=== PATIENT | male | born 1995 | race Caucasian/White ===

== ENCOUNTER 2016-10-08 21:10 | Emergency (ER) | payer OTHER ==
--- NOTE | 2016-10-08 21:18 | ER Document Report ---
ED Medical Screen (RME) - General Chief Complaint: Groin Pain Stated Complaint: GROIN PAIN Mode of Arrival: Ambulatory Information source: Patient Notes: 21 y/o M presents to ED c/o intermittenly persistent dysuria and associated penile discharge and frequency over the last week. Denies testicular/groin pain or swelling. I have greeted and performed a rapid initial assessment of this patient. A comprehensive ED assessment and evaluation of the patient, analysis of test results and completion of the medical decision making process will be conducted by additional ED providers. Physical Exam - General General appearance: Appears well, Alert In distress: None
[2016-10-08 22:46] LABS: APPEARANCE,URINE CLEAR; BILIRUBIN,URINE NEGATIVE (NEGATIVE); GLUCOSE, URINE NEGATIVE (NEGATIVE); KETONES,URINE NEGATIVE (NEGATIVE); LEUKOCYTE ESTERASE,URINE TRACE (NEGATIVE); NITRITE,URINE NEGATIVE (NEGATIVE); PROTEIN,URINE NEGATIVE (NEGATIVE); UROBILINOGEN,URINE NEGATIVE mg/dL (<2.0)
[2016-10-08] MEDS ORDERED: AZITHROMYCIN 250 MG TABLET PO ONE (23:53)
[2016-10-08] MEDS ORDERED: CEFTRIAXONE INJ 250 MG VIAL IM ONE (23:54)
--- NOTE | 2016-10-08 23:56 | ER Document Report ---
ED General - General Mode of Arrival: Ambulatory TRAVEL OUTSIDE OF THE [place] IN LAST 30 DAYS: No <JUDE HAYES - Last Filed: 10/08/16 23:54> - General Time seen by provider: 00:08 Mode of Arrival: Ambulatory Information source: Patient TRAVEL OUTSIDE OF THE [place] IN LAST 30 DAYS: No - HPI Onset: Last week Onset/Duration: Gradual Quality of pain: Burning Severity: Moderate Pain Level: 3 Associated symptoms: Other - Painful penis discharge Exacerbated by: Other - Sexual intercourse Relieved by: Denies Similar symptoms previously: No Recently seen / treated by doctor: No <CARMEL LUDWIG - Last Filed: 10/09/16 00:13> - General Chief Complaint: Penile Pain Stated Complaint: GROIN PAIN Notes: 21-year-old male presents to ED for painful discharge from penis (CARMEL LUDWIG) - Related Data Allergies/Adverse Reactions: No Known Allergies Allergy (Unverified 10/08/16 21:18) Past Medical History - General Information source: Patient - Social History Smoking Status: Never Smoker Chew tobacco use (# tins/day): No Frequency of alcohol use: Social Drug Abuse: None Patient has suicidal ideation: No Patient has homicidal ideation: No Renal/ Medical History: Denies: Hx Peritoneal Dialysis Surgical Hx: Negative <JUDE HAYES - Last Filed: 10/08/16 23:54> - Social History Smoking Status: Never Smoker Chew tobacco use (# tins/day): No Frequency of alcohol use: Social Drug Abuse: None Lives with: Other - Pharynx Family History: Reviewed & Not Pertinent Patient has suicidal ideation: No Patient has homicidal ideation: No - Past Medical History Cardiac Medical History: Reports: None Pulmonary Medical History: Reports: None EENT Medical History: Reports: None Neurological Medical History: Reports: None Endocrine Medical History: Reports: None Renal/ Medical History: Reports: None Malignancy Medical History: Reports None GI Medical History: Reports: None Musculoskeltal Medical History: Reports Hx Musculoskeletal Trauma - Rib fractures Skin Medical History: Reports None Psychiatric Medical History: Reports: None Traumatic Medical History: Reports: None Infectious Medical History: Reports: None Past Surgical History: Reports: Hx Oral Surgery - [place] teeth - Immunizations Immunizations up to date: Yes Hx Diphtheria, Pertussis, Tetanus Vaccination: Yes History of Influenza Vaccine for 06/2016 - 11/2016 Season: Yes <JOSEFLEECARMEL - Last Filed: 10/09/16 00:13> Review of Systems - Review of Systems Constitutional: No symptoms reported EENT: No symptoms reported Cardiovascular: No symptoms reported Respiratory: No symptoms reported Gastrointestinal: No symptoms reported Genitourinary: No symptoms reported Male Genitourinary: Penile discharge Musculoskeletal: No symptoms reported Skin: No symptoms reported Hematologic/Lymphatic: No symptoms reported Neurological/Psychological: No symptoms reported <CAREML LUDWIG - Last Filed: 10/09/16 00:13> Physical Exam <DARRYL HAYESIAN - Last Filed: 10/08/16 23:54> - Vital signs Interpretation: Normal - General General appearance: Appears well, Alert - HEENT Head: Normocephalic, Atraumatic Eyes: Normal Pupils: PERRL - Respiratory Respiratory status: No respiratory distress Chest status: Nontender Breath sounds: Normal Chest palpation: Normal - Cardiovascular Rhythm: Regular Heart sounds: Normal auscultation Murmur: No - Abdominal Inspection: Normal Distension: No distension Bowel sounds: Normal Tenderness: Nontender Organomegaly: No organomegaly - Genitourinary Tenderness: Nontender Cremasteric reflex: Normal Scrotum: Normal - Back Back: Normal, Nontender - Extremities General upper extremity: Normal inspection, Nontender, Normal color, Normal ROM , Normal temperature General lower extremity: Normal inspection, Nontender, Normal color, Normal ROM , Normal temperature, Normal weight bearing. No: Chelle's sign - Neurological Neuro grossly intact: Yes Cognition: Normal Orientation: AAOx4 [place] Coma Scale Eye Opening: Spontaneous [place] Coma Scale Verbal: Oriented [place] Coma Scale Motor: Obeys Commands Maryellen Coma Scale Total: 15 Speech: Normal Motor strength normal: LUE, RUE, LLE, RLE Sensory: Normal - Psychological Associated symptoms: Normal affect, Normal mood - Skin Skin Temperature: Warm Skin Moisture: Dry Skin Color: Normal <CARMEL LUDWIG - Last Filed: 10/09/16 00:13> - Vital signs Vitals: Temp Pulse Resp BP Pulse Ox 98.6 F 79 12 129/79 H 100 10/08/16 21:30 10/08/16 21:30 10/08/16 21:30 10/08/16 21:30 10/08/16 21:30 (JUDE HAYES) (CARMEL LUDWIG) - Genitourinary Notes: Penile discharge. Clear at this time (CARMEL LUDWIG) Course <JUDE HAYES - Last Filed: 10/08/16 23:54> <CARMEL LUDWIG - Last Filed: 10/09/16 00:13> - Re-evaluation Re-evalutation: 10/08/16 23:54 Patient presents with symptoms consistent with dissection transmitted infection likely either gonorrhea or chlamydia. He was empirically treated with ceftriaxone and azithromycin. Safe sex practices have been reviewed. No additional concerns. Exam is otherwise unremarkable without evidence of torsion or epididymitis.At this time will discharge with return precautions and follow-up recommendations. Verbal discharge instructions given a the bedside and opportunity for questions given. Medication warnings reviewed. Patient is in agreement with this plan and has verbalized understanding of return precautions and the need for primary care follow-up in the next 24-72 hours. ( JUDE HAYES) - Vital Signs Vital signs: Temp Pulse Resp BP Pulse Ox 98.6 F 79 12 129/79 H 100 10/08/16 21:30 10/08/16 21:30 10/08/16 21:30 10/08/16 21:30 10/08/16 21:30 (JUDE HAYES) (CARMEL LUDWIG) - Laboratory Laboratory results interpreted by me: 10/08/16 21:22 Ur Leukocyte Esterase TRACE H (JUDE HAYES) (CARMEL LUDWIG) Discharge <JUDE HAYES - Last Filed: 10/08/16 23:54> <CARMEL LUDWIG - Last Filed: 10/09/16 00:13> - Discharge Clinical Impression: Sexually transmitted disease Condition: Good Disposition: HOME, SELF-CARE Additional Instructions: You need to use protection every time you have sex. Failure to do so can result in transmission of infections or unintended . You have been treated for an sexually transmitted infection (STI) today. All of your partners should be tested and treated as they are also likely to be infected. Please return if you develop abdominal pain, fever, persistent vomiting, or any other symptoms that are concerning to you. Please follow-up at the local health department for STI testing. Address: [address] [place] [address] Hours: 8am-4pm Thurs 12p-4p Wed 8a-4p Azithromycin Azithromycin (Zithromax) is a broad spectrum antibiotic in the same class as erythromycin. It can treat a variety of bacterial infections, but is most frequently used for respiratory infections. Azithromycin is extremely long-lasting. It accumulates in body tissues and continues to kill bacteria for many days. In order to improve absorption, Azithromycin should be taken at least one hour before or two hours after a meal. It does not have the same strong tendency to upset the stomach as erythromycin and is usually very well tolerated. Patients who have had a rash or other true allergic reactions to erythromycin should not take this medication. Call if you develop gastrointestinal distress, severe diarrhea, rash, hives, itching, or shortness of breath. Rocephin You have been given an injection of an antibiotic called Rocephin ( ceftriaxone). Sometimes the injection must be combined with antibiotic pills. For some infections, such as an uncomplicated ear infection, Rocephin provides all the antibiotic that's needed. The antibiotic will be in your body for about two days. For serious infections, we usually repeat doses of Rocephin daily. Side effects are very unusual following a shot. Women may develop vaginal yeast infections, and babies can get yeast (thrush) in the mouth following the use of antibiotics. Contact your physician if you have symptoms with this medication. Allergy to this antibiotic can result in hives, wheezing, faintness, or itching. If symptoms of allergy occur, call the doctor at once. FOLLOW-UP CARE: If you have been referred to a physician for follow-up care, call the physician s office for an appointment as you were instructed or within the next two days. If you experience worsening or a significant change in your symptoms, notify the physician immediately or return to the Emergency Department at any time for re-evaluation. Forms: Elevated Blood Pressure
[2016-10-09] MEDS ORDERED: LIDOCAINE 1% INJ-PF (10 MG/ML) 30 ML SDV ONE (00:09)
[2016-10-09 00:12] LABS: CHLAM PCR DETECTED (NOT DETECT)
[2016-10-09 01:55] VITALS: BP 129/88
== END 2016-10-09 00:45 | disposition home or self-care (01) ==
LOC: ER 21:10
DX: R10.30 Lower abdominal pain, unspecified (principal); R36.9 Urethral discharge, unspecified; R35.0 Frequency of micturition; Z53.20 Procedure and treatment not carried out because of patient's decision for unspecified reasons
CPT/HCPCS: 99281; 96372; 81001; 87491; 87591; J3490; J0696

== ENCOUNTER 2016-11-09 20:40 | Emergency (ER) | payer OTHER ==
[2016-11-09 20:49] VITALS: BP 144/56
[2016-11-09] MEDS ORDERED: AZITHROMYCIN 1 GM SUSP PACKET PO ONE (21:35)
[2016-11-09] MEDS ORDERED: CEFTRIAXONE INJ 250 MG VIAL IM ONE (21:35)
[2016-11-09] MEDS ORDERED: LIDOCAINE 1% INJ-PF (10 MG/ML) 30 ML SDV INFIL ONE (21:35)
--- NOTE | 2016-11-09 21:35 | ER Document Report ---
ED Medical Screen (RME) - General Stated Complaint: GENITAL PAIN Mode of Arrival: Ambulatory Information source: Patient Notes: pt with history of gonorrhea reports having same symptoms today. Recently treated for STD's approximately 4 weeks ago here. He thinks he unprotected sex again. Reports he went out drinking ETOH. Denies f/v/d. Reports genital irritating feeling. Denies pain with void. Patient also has a bump he would like to see a male doctor for. TRAVEL OUTSIDE OF THE [place]. IN LAST 30 DAYS: No - Related Data Allergies/Adverse Reactions: shellfish derived Allergy (Verified 11/09/16 21:32) Past Medical History Renal/ Medical History: Denies: Hx Peritoneal Dialysis Physical Exam - Vital signs Vitals: Temp Pulse Resp BP Pulse Ox 98.4 F 91 18 144/56 H 99 11/09/16 20:47 11/09/16 20:47 11/09/16 20:47 11/09/16 20:47 11/09/16 20:47 Course - Vital Signs Vital signs: Temp Pulse Resp BP Pulse Ox 98.4 F 91 18 144/56 H 99 11/09/16 20:47 11/09/16 20:47 11/09/16 20:47 11/09/16 20:47 11/09/16 21:36
--- NOTE | 2016-11-09 21:37 | ER Document Report ---
HPI - HPI Pain Level: 0 Context: pt with history of gonorrhea reports having same symptoms today. Recently treated for STD's approximately 4 weeks ago here. He thinks he unprotected sex again. Reports he went out drinking ETOH. Denies f/v/d. Reports genital irritating feeling. Denies pain with void. - DERM Skin Color: Normal Past Medical History - General Information source: Patient - Social History Smoking Status: Never Smoker Chew tobacco use (# tins/day): No Frequency of alcohol use: Social Drug Abuse: None Patient has suicidal ideation: No Patient has homicidal ideation: No Renal/ Medical History: Denies: Hx Peritoneal Dialysis Vertical Provider Document - INFECTION CONTROL TRAVEL OUTSIDE OF THE [place] IN LAST 30 DAYS: No - RESPIRATORY O2 Sat by Pulse Oximetry: 99 Course - Vital Signs Vital signs: Temp Pulse Resp BP Pulse Ox 98.4 F 91 18 144/56 H 99 11/09/16 20:47 11/09/16 20:47 11/09/16 20:47 11/09/16 20:47 11/09/16 20:47
--- NOTE | 2016-11-09 22:08 | ER Document Report ---
ED General - General Chief Complaint: Penile Problem Stated Complaint: GENITAL PAIN Mode of Arrival: Ambulatory Information source: Patient Notes: 21-year-old male presents with 2 separate genital complaints. Patient has been having dysuria over the past few days. Patient was recently treated for chlamydia. Patient also notes bumps in his suprapubic region for one year duration that he wishes to have evaluated TRAVEL OUTSIDE OF THE [place] IN LAST 30 DAYS: No - HPI Onset: Other Onset/Duration: Persistent Quality of pain: Burning Severity: Mild Pain Level: 1 Associated symptoms: Other Exacerbated by: Other - Urination Relieved by: Denies Similar symptoms previously: Yes Recently seen / treated by doctor: Yes - Related Data Allergies/Adverse Reactions: shellfish derived Allergy (Verified 11/09/16 21:32) Past Medical History - General Information source: Patient - Social History Smoking Status: Never Smoker Cigarette use (# per day): No Chew tobacco use (# tins/day): No Smoking Education Provided: No Frequency of alcohol use: Social Drug Abuse: None Family History: Reviewed & Not Pertinent Patient has suicidal ideation: No Patient has homicidal ideation: No Renal/ Medical History: Denies: Hx Peritoneal Dialysis Review of Systems - Review of Systems Notes: REVIEW OF SYSTEMS: CONSTITUTIONAL : Denies fever, chills, or sweats. Denies recent illness. EENT: Denies eye, ear, throat, or mouth pain or symptoms. Denies nasal or sinus congestion or discharge. Denies throat, tongue, or mouth swelling or difficulty swallowing. CARDIOVASCULAR: Denies chest pain. Denies palpitations or racing or irregular heart beat. Denies ankle edema. RESPIRATORY: Denies cough, cold, or chest congestion. Denies shortness of breath, difficulty breathing, or wheezing. GASTROINTESTINAL: Denies abdominal pain or distention. Denies nausea, vomiting , or diarrhea. Denies blood in vomitus, stools, or per rectum. Denies black, tarry stools. Denies constipation. GENITOURINARY: Admits to burning on urination MUSCULOSKELETAL: Denies back or neck pain or stiffness. Denies joint pain or swelling. SKIN: Admits to rash suprapubic HEMATOLOGIC : Denies easy bruising or bleeding. LYMPHATIC: Denies swollen, enlarged glands. NEUROLOGICAL: Denies confusion or altered mental status. Denies passing out or loss of consciousness. Denies dizziness or lightheadedness. Denies headache. Denies weakness or paralysis or loss of use of either side. Denies problems with gait or speech. Denies sensory loss, numbness, or tingling. Denies seizures. PSYCHIATRIC: Denies anxiety or stress. Denies depression, suicidal ideation, or homicidal ideation. ALL OTHER SYSTEMS REVIEWED AND NEGATIVE. Dictation was performed using [employer] voice recognition software PHYSICAL EXAMINATION: GENERAL: Well-appearing, well-nourished and in no acute distress. HEAD: Atraumatic, normocephalic. EYES: Pupils equal round and reactive to light, extraocular movements intact, sclera anicteric, conjunctiva are normal. ENT: Nares patent, oropharynx clear without exudates. Moist mucous membranes. NECK: Normal range of motion, supple without lymphadenopathy LUNGS: Breath sounds clear to auscultation bilaterally and equal. No wheezes rales or rhonchi. HEART: Regular rate and rhythm without murmurs ABDOMEN: Soft, nontender, nondistended abdomen. No guarding, no rebound. No masses appreciated. Circumcised penis at the base of the penis there are Genital warts Musculoskeletal: Normal range of motion, no pitting or edema. No cyanosis. NEUROLOGICAL: Cranial nerves grossly intact. Normal speech, normal gait. Normal sensory, motor exams PSYCH: Normal mood, normal affect. SKIN: Warm, Dry, normal turgor, no rashes or lesions noted. Physical Exam - Vital signs Vitals: Temp Pulse Resp BP Pulse Ox 98.4 F 91 18 144/56 H 99 11/09/16 20:47 11/09/16 20:47 11/09/16 20:47 11/09/16 20:47 11/09/16 20:47 Course - Re-evaluation Re-evalutation: 11/09/16 23:18 Patient will be given follow-up with health department medication for genital warts and will be treated for gonorrhea chlamydia serology is pending Patient instructed on concerns for STDs After performing a Medical Screening Examination, I estimate there is LOW risk for ACUTE CORONARY SYNDROME, RESPIRATORY FAILURE, SEPSIS OR MENINGITIS, thus I consider the discharge disposition reasonable. The patient and I have discussed the diagnosis and risks, and we agree with discharging home with close follow- up. We also discussed returning to the Emergency Department immediately if new or worsening symptoms occur. We have discussed the symptoms which are most concerning (e.g., changing or worsening pain, trouble swallowing or breathing, neck stiffness, fever) that necessitate immediate return. - Vital Signs Vital signs: Temp Pulse Resp BP Pulse Ox 98.4 F 91 18 144/56 H 99 11/09/16 20:47 11/09/16 20:47 11/09/16 20:47 11/09/16 20:47 11/09/16 20:47 Discharge - Discharge Clinical Impression: Genital warts, Dysuria Condition: Stable Disposition: HOME, SELF-CARE Additional Instructions: Warts You have warts. They're caused by a virus. The warts can spread to other areas of your body, and can be passed to other people. Warts will usually go away, but this can take years. For most warts, the best choice is to apply an anti-wart compound regularly until every wart is gone. There are prescription and [id number] preparations, usually containing either podophyllin or salicylic acid. Follow the directions carefully, and apply the medicine only to the wart. Warts can be removed by freezing or cautery. Because warts usually go away without causing damage, this treatment is reserved for more severe or resistant warts. Call the doctor if you develop swelling, increasing pain, fever, red streaks, or discharge. Prescriptions: Podofilox [Condylox] 3.5 gm TP BID 3 Days [facility] - Follow up in 3-5 days
[2016-11-09 22:11] LABS: APPEARANCE,URINE CLEAR; BILIRUBIN,URINE NEGATIVE (NEGATIVE); GLUCOSE, URINE NEGATIVE (NEGATIVE); KETONES,URINE NEGATIVE (NEGATIVE); LEUKOCYTE ESTERASE,URINE NEGATIVE (NEGATIVE); NITRITE,URINE NEGATIVE (NEGATIVE); PROTEIN,URINE NEGATIVE (NEGATIVE); URINE SPECIFIC GRAVITY 1.013; UROBILINOGEN,URINE NEGATIVE mg/dL (<2.0)
[2016-11-09 23:37] LABS: CHLAM PCR NOT DETECTED (NOT DETECT)
== END 2016-11-09 22:17 | disposition home or self-care (01) ==
LOC: ER 20:40
DX: A63.0 Anogenital (venereal) warts (principal); R30.0 Dysuria; Z91.013 Allergy to seafood
CPT/HCPCS: 99283; 81001; 87491; 87591; J3490; Q0144; J0696

== ENCOUNTER 2017-03-26 19:13 | Emergency (ER) | payer OTHER ==
[2017-03-26 19:21] VITALS: BP 132/58
== END 2017-03-26 20:30 | disposition left against medical advice (07) ==
LOC: ER 19:13
DX: Z53.21 Procedure and treatment not carried out due to patient leaving prior to being seen by health care provider (principal)

== ENCOUNTER 2017-03-28 14:11 | Emergency (ER) | payer OTHER ==
[2017-03-28 14:22] VITALS: BP 137/58
--- NOTE | 2017-03-28 16:51 | ER Document Report ---
HPI - HPI Pain Level: 3 - DERM Skin Color: Normal Past Medical History - Social History Family History: Reviewed & Not Pertinent Patient has suicidal ideation: No Patient has homicidal ideation: No Renal/ Medical History: Denies: Hx Peritoneal Dialysis Vertical Provider Document - INFECTION CONTROL TRAVEL OUTSIDE OF THE [place] IN LAST 30 DAYS: No - RESPIRATORY O2 Sat by Pulse Oximetry: 100 Course - Vital Signs Vital signs: Temp Pulse Resp BP Pulse Ox 97.8 F 64 16 137/58 H 100 03/28/17 14:21 03/28/17 14:21 03/28/17 14:21 03/28/17 14:21 03/28/17 14:21
[2017-03-28] MEDS ORDERED: ONDANSETRON 4 MG TAB.RAPDIS PO ONE (16:52)
[2017-03-28] MEDS ORDERED: CEFTRIAXONE INJ 250 MG VIAL IM ONE (16:52)
[2017-03-28] MEDS ORDERED: AZITHROMYCIN 250 MG TABLET PO ONE (16:52)
[2017-03-28 18:33] LABS: CHLAM PCR DETECTED (NOT DETECT)
== END 2017-03-28 16:51 | disposition left against medical advice (07) ==
LOC: ER 14:11
DX: Z53.9 Procedure and treatment not carried out, unspecified reason (principal)
CPT/HCPCS: 87491; 87591

== ENCOUNTER 2017-03-29 21:00 | Emergency (ER) | payer OTHER | END 2017-03-29 21:30 | disposition left against medical advice (07) | LOC: ER 21:00 | DX: Z53.21 Procedure and treatment not carried out due to patient leaving prior to being seen by health care provider (principal) ==

== ENCOUNTER 2017-03-30 18:52 | Emergency (ER) | payer OTHER ==
[2017-03-30 19:25] VITALS: BP 133/56
[2017-03-30] MEDS ORDERED: ONDANSETRON 4 MG TAB.RAPDIS PO ONE (19:25)
[2017-03-30] MEDS ORDERED: AZITHROMYCIN 250 MG TABLET PO ONE (19:25)
--- NOTE | 2017-03-30 19:26 | ER Document Report ---
HPI - HPI Patient complains to provider of: positive chlamydia test last night Pain Level: Denies Context: 22-year-old male came in last night to be treated for chlamydia the left without being seen. I approved for the test to be sent to the lab and it came back positive for chlamydia and negative for gonorrhea. The nurse recalled him today to come back for treatment. Pelvic or abdominal pain. No penile discharge or penile pain. No dysuria. No testicular scrotal swelling or pain. Associated Symptoms: None Exacerbated by: Denies Relieved by: Denies - ROS ROS below otherwise negative: Yes Systems Reviewed and Negative: Yes All other systems reviewed and negative - DERM Skin Color: Normal, [place] Past Medical History - General Information source: Patient - Social History Smoking Status: Never Smoker Frequency of alcohol use: None Drug Abuse: None Lives with: Spouse/Significant other Family History: Reviewed & Not Pertinent - Medical History Medical History: Negative Renal/ Medical History: Denies: Hx Peritoneal Dialysis Surgical Hx: Negative Vertical Provider Document - CONSTITUTIONAL Agree With Documented VS: Yes Exam Limitations: No Limitations - INFECTION CONTROL TRAVEL OUTSIDE OF THE [place] IN LAST 30 DAYS: No - HEENT HEENT: Atraumatic, Normocephalic - NECK Neck: Supple - RESPIRATORY Respiratory: Breath Sounds Normal, No Respiratory Distress - CARDIOVASCULAR Cardiovascular: Regular Rate, Regular Rhythm - GI/ABDOMEN Gastrointestinal: Abdomen Soft, Abdomen Non-Tender - NEURO Level of Consciousness: Awake, Alert, Appropriate - DERM Integumentary: Warm, Dry Discharge - Discharge Clinical Impression: chlamydia treatment Condition: Good Disposition: HOME, SELF-CARE Instructions: Chlamydia ([facility]), Azithromycin ([facility]), Antinausea Medication ([facility]) Additional Instructions: check for cure in 2 weeks since girlfriend is and she has been treated 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 If you do not receive a survey, then you can go to the [facility] website, [email or web address] and place your comments about your very good care. Thank you very much. It was a pleasure being your medical provider today.
== END 2017-03-30 20:13 | disposition home or self-care (01) ==
LOC: ER 18:52
DX: A74.9 Chlamydial infection, unspecified (principal); R10.2 Pelvic and perineal pain; R10.9 Unspecified abdominal pain
CPT/HCPCS: 99283; S0119

== ENCOUNTER 2020-07-12 21:52 | Emergency (ER) | payer SELFPAY ==
[2020-07-12] MEDS ORDERED: DIPHENHYDRAMINE HCL 50 MG CAPSULE PO ONE (22:43)
[2020-07-12] MEDS ORDERED: PREDNISONE 20 MG TABLET PO ONE (22:43)
[2020-07-12] MEDS ORDERED: FAMOTIDINE 20 MG TABLET PO ONE (22:43)
--- NOTE | 2020-07-12 22:50 | ER Document Report ---
ED General - General Chief Complaint: Rash Stated Complaint: RASH ON BACK Time Seen by Provider: 07/12/20 22:43 Mode of Arrival: Ambulatory Information source: Patient Notes: 25-year-old male coming in today with some urticarial rash that started earlier today. He took some Benadryl which briefly helped with the symptoms. This afternoon/this evening it has started coming back. He has no history of anaphylaxis in the past. Does not have any true allergies except shellfish and has not eaten anything remotely related to shellfish. He has never needed epinephrine. Not having any oropharyngeal or respiratory edema. TRAVEL OUTSIDE OF THE [place] IN LAST 30 DAYS: No - Related Data Allergies/Adverse Reactions: shellfish derived Allergy (Verified 03/26/17 19:21) Past Medical History - Social History Smoking Status: Unknown if Ever Smoked Family History: Reviewed & Not Pertinent Renal/ Medical History: Denies: Hx Peritoneal Dialysis Review of Systems - Review of Systems Notes: Constitutional: No fevers. No chills. EENT: No eye redness. No eye pain. No ear pain. No sore throat. Cardiovascular: No chest pain. No palpitations. Respiratory: No cough. No shortness of breath. No respiratory distress. Gastrointestinal: No abdominal pain. No nausea, vomiting, or diarrhea. Genitourinary: Atraumatic. No lesions. No pain. No discharge. Musculoskeletal: Atraumatic. No swelling. No deformities. Skin: Positive itchy rash Lymphatic: No swollen lymph nodes. Neurologic: No headache. No syncope. Psychiatric: No suicidal or homicidal ideation. Physical Exam - Vital signs Vitals: Temp Pulse Resp BP Pulse Ox 98.7 F 85 18 124/60 99 07/12/20 22:08 07/12/20 22:08 07/12/20 22:08 07/12/20 22:08 07/12/20 22:08 - Notes Notes: General: Well-developed, well-nourished. In no acute distress. Non-toxic appearing. Cardiac: Well-perfused. Regular rate and rhythm. No murmurs, rubs, or gallops. Pulmonary: No respiratory distress. No cyanosis. Bilateral lung fiels are clear to auscultation. Abdominal: Non-distended. Non-rigid. Bowels sounds are present in all four quadrants. No guarding or rebound. HEENT: Head is atraumatic. Conjunctivae not reddened. No tearing. PERRL. EOMI. Orbits atraumatic. No periorbital swelling or erythema. Oropharynx is without erythema, swelling, or exudates. No Trismus. No drooling. No submandibular or sublingual swelling. No dysphonia dyspnea or dysphagia Neck: Supple. No adenopathy. No meningismus. Dermatologic: Mild urticarial rash noted to the proximal bilateral thighs, right lower back and to a smaller degree on the arms. Chest: Atraumatic. No chest wall tenderness to palpation. Musculoskeletal: Moves all extremities well. No range of motion deficits. no muscular or joint tenderness. No paraspinal muscle tenderness. no midline spinal tenderness or step-off. Genitourinary: Examination deferred Neurologic: No gross neurologic deficits. Psychiatric: Normal mood. Course - Re-evaluation Re-evalutation: 07/12/20 22:49 Patient does not have any signs or symptoms of a worsening rash. Last Benadryl was earlier this morning. Not having any oropharyngeal swelling. No difficulty breathing. No concern for evolving anaphylaxis. We will start the patient on 50 mg of Benadryl as well as 20 mg of Pepcid and 60 mg prednisone. - Vital Signs Vital signs: Temp Pulse Resp BP Pulse Ox 98.7 F 85 18 124/60 99 07/12/20 22:08 07/12/20 22:08 07/12/20 22:08 07/12/20 22:08 07/12/20 22:08 Discharge - Discharge Clinical Impression: Urticaria Condition: Good Disposition: HOME, SELF-CARE Instructions: Acute Urticaria ([facility]) Additional Instructions: Be sure to take all of the medications prescribed to you for the full duration. Return to the emergency room immediately if you develop swelling of your lips, tongue, throat, and/or develop difficulty breathing. Prescriptions: Hydroxyzine Pamoate 25 mg PO Q4HP PRN #30 capsule PRN Reason: Prednisone [Deltasone 20 mg Tablet] 3 tab PO DAILY 5 Days #15 tablet Famotidine [Pepcid 20 mg Tablet] 20 mg PO BID #10 tablet
[2020-07-12 23:41] VITALS: BP 118/68
== END 2020-07-12 23:45 | disposition home or self-care (01) ==
LOC: ER 21:52
DX: L50.9 Urticaria, unspecified (principal); Z91.013 Allergy to seafood
CPT/HCPCS: 99283; J7512